=== PATIENT | male | born 1945 | race Caucasian/White ===

== ENCOUNTER 2017-04-05 18:20 | Emergency (ER) | payer MEDICARE ==
[~2017-04-05] VITALS: Ht 170.2 cm; Wt 78.1 kg
[2017-04-05 20:16] VITALS: BP 137/29
[2017-04-05] MEDS ORDERED: KETOROLAC TROMETHAMINE 30 MG/ML VIAL IM ONE (20:30)
== END 2017-04-05 21:00 | disposition home or self-care (01) ==
LOC: EMS 18:22
DX: G89.29 Other chronic pain (principal); M54.9 Dorsalgia, unspecified; Z98.890 Other specified postprocedural states; L90.5 Scar conditions and fibrosis of skin
CPT/HCPCS: 96372; 99283; J1885

== ENCOUNTER 2017-06-11 14:53 | Emergency (ER) | payer MEDICARE ==
[~2017-06-11] VITALS: Ht 170.2 cm; Wt 77.3 kg
[2017-06-11] MEDS ORDERED: TRAM50TA4 PO (15:49)
[2017-06-11] MEDS ORDERED: DIVA125T PO (15:49)
[2017-06-11] MEDS ORDERED: GABA-531 PO (15:49)
[2017-06-11] MEDS ORDERED: TAMS0.4C32 PO (15:49)
[2017-06-11] MEDS ORDERED: OLAN10TA3 PO (15:49)
[2017-06-11] MEDS ORDERED: DULO30CA2 PO (15:49)
[2017-06-11] MEDS ORDERED: LORA1TAB3 PO (15:49)
[2017-06-11 19:08] VITALS: BP 143/69
== END 2017-06-11 19:14 | disposition home or self-care (01) ==
LOC: EMS 14:55
DX: S43.401A Unspecified sprain of right shoulder joint, initial encounter (principal); S09.90XA Unspecified injury of head, initial encounter; W01.0XXA Fall on same level from slipping, tripping and stumbling without subsequent striking against object, initial encounter; Y93.89 Activity, other specified; Y92.89 Other specified places as the place of occurrence of the external cause; Y99.8 Other external cause status
CPT/HCPCS: 70450; 72125; 99284

== ENCOUNTER 2017-06-12 11:21 | Inpatient (IN) | payer MEDICARE, MEDICAID ==
[~2017-06-12] VITALS: Ht 170.2 cm; Wt 81.2 kg
[~2017-06-12 11:21] MED LIST: DIVA125T PO; DULO30CA2 PO; GABA-531 PO; LORA1TAB3 PO; OLAN10TA3 PO; TAMS0.4C32 PO; TRAM50TA4 PO
[2017-06-12 12:48] LABS: BASOPHILS % (AUTO) 0.5 % (0.0-2.0); EOSINOPHILS % (AUTO) 2.3 % (1.0-6.0); HEMATOCRIT 38.7 % (41-53); HEMOGLOBIN 12.8 g/dL (13.5-17.5); LYMPHOCYTES # (AUTO) 1.2 K/uL (1.0-4.8); LYMPHOCYTES % (AUTO) 15.5 % (22.0-44.0); MEAN CORPUSCULAR HEMOGLOBIN 26.6 pg (26.0-34.0); MEAN CORPUSCULAR HGB CONC 33.1 G/dL (31.0-37.0); MEAN CORPUSCULAR VOLUME 81 fL (80-100); MONOCYTES # (AUTO) 0.8 K/uL (0.1-1.0); MONOCYTES % (AUTO) 10.3 % (2.0-9.0); NEUTROPHILS # (AUTO) 5.8 K/uL (1.8-7.7); NEUTROPHILS % (AUTO) 71.4 % (40.0-70.0); PLATELET COUNT (AUTO) 220 K/uL (150-450); RED BLOOD CELL COUNT(AUTO) 4.81 MIL/uL (4.50-5.90); RED CELL DISTRIBUTION WIDTH 15.8 % (11.5-14.5)
[2017-06-12 12:49] LABS: ANION GAP 7 mmol/L (8-16); CALCIUM, TOTAL 8.5 mg/dL (8.8-10.5); CARBON DIOXIDE 29 mmol/L (22-29); CHLORIDE 104 mmol/L (98-107); CREATININE 0.68 mg/dL (0.60-1.30); GLOMERULAR FILTR. RATE CALC > 60 mL/min (>60); GLUCOSE,RANDOM 84 mg/dL (70-110); POTASSIUM 3.7 mmol/L (3.5-5.1); SODIUM SERUM 140 mmol/L (136-145); UREA NITROGEN, BLOOD 19 mg/dL (7-18)
[2017-06-12 12:56] LABS: ALANINE AMINOTRANSFERASE 20 U/L (12-78); ALBUMIN 3.5 g/dL (3.4-5.0); ALKALINE PHOSPHATASE 91 U/L (46-116); ASPARTATE AMINOTRANSFERASE 15 U/L (15-37); BILIRUBIN,TOTAL 0.6 mg/dL (0.1-1.0); TOTAL PROTEIN, SERUM 7.4 g/dL (6.4-8.2); VALPROIC ACID 17 mcg/mL (50-100)
[2017-06-12] MEDS ORDERED: LORazepam 1 MG TABLET PO PRN (14:00)
[2017-06-12] MEDS ORDERED: HALOPERIDOL 5 MG TABLET PO PRN (14:00)
[2017-06-12 16:21] LABS: FREE T4 (FREE THYROXINE) 1.08 ng/dL (0.76-1.46); THYROID STIMULATING HORMONE 2.49 uIU/mL (0.36-3.74)
[2017-06-12] MEDS ORDERED: ONDANSETRON HCL 4 MG TABLET PO PRN (19:45)
[2017-06-12] MEDS ORDERED: PETROLATUM,WHITE 71 GM JELLY TP PRN (19:45)
[2017-06-12] MEDS ORDERED: MAGNESIUM HYDROXIDE SUSPENSION 30 ML UDCUP PO PRN (19:45)
[2017-06-12] MEDS ORDERED: BACITRACIN 28.4 GM OINTMENT TP PRN (19:45)
[2017-06-12] MEDS ORDERED: CloNIDine HCL 0.1 MG TABLET PO PRN (19:45)
[2017-06-12] MEDS ORDERED: LOPERAMIDE HCL 2 MG CAPSULE PO PRN (19:45)
[2017-06-12] MEDS ORDERED: BENZOCAINE/MENTHOL LOZENGE [8 LOZENGES/PACKET] MM PRN (19:45)
[2017-06-12] MEDS ORDERED: ALBUTEROL SULFATE HFA 90 MCG/PUFF 8 GM INHALER IH PRN (19:45)
[2017-06-12] MEDS ORDERED: ACETAMINOPHEN 325 MG TABLET PO PRN (19:45)
[2017-06-12] MEDS ORDERED: MAG HYDROX/AL HYDROX/SIMETH ES 30 ML SUSPENSION UDCUP PO PRN (19:45)
[2017-06-12 19:50] VITALS: BP 140/85
[2017-06-13 02:15] VITALS: BP 147/78
[2017-06-13] MEDS: DOCUSATE SODIUM 100 MG CAPSULE PO SCH (08:54)
[2017-06-13] MEDS: OMEPRAZOLE 20 MG CAPSULE PO SCH (08:54)
[2017-06-13 08:58] VITALS: BP 139/75
[2017-06-13] MEDS: IBUPROFEN 600 MG TABLET PO PRN (08:58)
[2017-06-13] MEDS ORDERED: DICLOFENAC SODIUM 1% 100 GM GEL [2GM] TP PRN (09:30)
[2017-06-13 10:00] VITALS: BP 132/72
[2017-06-13 16:13] VITALS: BP 132/78
[2017-06-13] MEDS: DULoxetine HCL 30 MG CAPSULE PO SCH (20:40)
[2017-06-13] MEDS: OLANZapine 10 MG TABLET PO SCH (20:40)
[2017-06-13] MEDS: DIVALPROEX SODIUM 125 MG DR TABLET PO SCH (21:13)
[2017-06-14 05:23] VITALS: BP 136/76
[2017-06-14 08:33] LABS: CHOL/HDL RATIO 5.7 (4.2-7.3)
[2017-06-14 08:46] VITALS: BP 139/87
[2017-06-14] MEDS: TraMADol HCL 50 MG TABLET PO PRN (08:46)
[2017-06-14] MEDS: DOCUSATE SODIUM 100 MG CAPSULE PO SCH (08:46)
[2017-06-14] MEDS: DIVALPROEX SODIUM 125 MG DR TABLET PO SCH ×3 (08:46→17:07)
[2017-06-14] MEDS: LISINOPRIL 5 MG TABLET PO SCH (08:46)
[2017-06-14] MEDS: OMEPRAZOLE 20 MG CAPSULE PO SCH (08:46)
[2017-06-14 09:41] VITALS: BP 141/68
[2017-06-14 16:04] VITALS: BP 129/82
[2017-06-14] MEDS: DULoxetine HCL 30 MG CAPSULE PO SCH (20:16)
[2017-06-14] MEDS: OLANZapine 10 MG TABLET PO SCH (20:17)
[2017-06-15] VITALS (7 sets, daily range): BP systolic 127–132; BP diastolic 69–81
[2017-06-15] MEDS: ZOLPIDEM TARTRATE 10 MG TABLET PO PRN (02:04)
[2017-06-15] MEDS: LISINOPRIL 5 MG TABLET PO SCH (08:48)
[2017-06-15] MEDS: DOCUSATE SODIUM 100 MG CAPSULE PO SCH (08:48)
[2017-06-15] MEDS: OMEPRAZOLE 20 MG CAPSULE PO SCH (08:48)
[2017-06-15] MEDS: DIVALPROEX SODIUM 125 MG DR TABLET PO SCH ×3 (08:48→16:50)
[2017-06-15] MEDS: TraMADol HCL 50 MG TABLET PO PRN (09:58)
[2017-06-15] MEDS: IBUPROFEN 600 MG TABLET PO PRN (16:51)
[2017-06-15] MEDS: OLANZapine 10 MG TABLET PO SCH (20:17)
[2017-06-15] MEDS: DULoxetine HCL 30 MG CAPSULE PO SCH (20:17)
[2017-06-16] VITALS (7 sets, daily range): BP systolic 105–134; BP diastolic 64–82
[2017-06-16] MEDS: IBUPROFEN 600 MG TABLET PO PRN (06:38)
[2017-06-16] MEDS: OMEPRAZOLE 20 MG CAPSULE PO SCH (08:20)
[2017-06-16] MEDS: DIVALPROEX SODIUM 125 MG DR TABLET PO SCH ×3 (08:20→16:31)
[2017-06-16] MEDS: CHOLECALCIFEROL (VIT D3) 1,000 UNITS TABLET PO SCH (08:20)
[2017-06-16] MEDS: LISINOPRIL 5 MG TABLET PO SCH (08:21)
[2017-06-16] MEDS: DOCUSATE SODIUM 100 MG CAPSULE PO SCH (08:21)
[2017-06-16] MEDS: TraMADol HCL 50 MG TABLET PO PRN (10:11)
[2017-06-16] MEDS: OLANZapine 10 MG TABLET PO SCH (20:36)
[2017-06-16] MEDS: DULoxetine HCL 30 MG CAPSULE PO SCH (20:37)
[2017-06-17 00:33] VITALS: BP 121/60
[2017-06-17] MEDS: TraMADol HCL 50 MG TABLET PO PRN ×2 (01:29→19:24)
[2017-06-17] MEDS: ZOLPIDEM TARTRATE 10 MG TABLET PO PRN (01:29)
[2017-06-17 01:30] VITALS: BP 110/60
[2017-06-17] MEDS: DOCUSATE SODIUM 100 MG CAPSULE PO SCH (08:32)
[2017-06-17] MEDS: DIVALPROEX SODIUM 125 MG DR TABLET PO SCH ×3 (08:32→16:03)
[2017-06-17] MEDS: OMEPRAZOLE 20 MG CAPSULE PO SCH (08:33)
[2017-06-17] MEDS: CHOLECALCIFEROL (VIT D3) 1,000 UNITS TABLET PO SCH (08:33)
[2017-06-17] MEDS: LISINOPRIL 5 MG TABLET PO SCH (08:33)
[2017-06-17 16:21] VITALS: BP 127/78
[2017-06-17 19:24] VITALS: BP 126/71
[2017-06-17] MEDS: OLANZapine 10 MG TABLET PO SCH (20:57)
[2017-06-17] MEDS: DULoxetine HCL 30 MG CAPSULE PO SCH (20:57)
[2017-06-18 00:31] VITALS: BP 104/66
[2017-06-18] MEDS: ZOLPIDEM TARTRATE 10 MG TABLET PO PRN (00:32)
[2017-06-18] MEDS: IBUPROFEN 600 MG TABLET PO PRN (00:33)
[2017-06-18] MEDS: DIVALPROEX SODIUM 125 MG DR TABLET PO SCH ×3 (08:47→16:16)
[2017-06-18] MEDS: LISINOPRIL 5 MG TABLET PO SCH (08:47)
[2017-06-18] MEDS: DOCUSATE SODIUM 100 MG CAPSULE PO SCH (08:47)
[2017-06-18] MEDS: CHOLECALCIFEROL (VIT D3) 1,000 UNITS TABLET PO SCH (08:47)
[2017-06-18] MEDS: OMEPRAZOLE 20 MG CAPSULE PO SCH (08:47)
[2017-06-18 09:32] VITALS: BP 120/75
[2017-06-18 16:03] VITALS: BP 124/78
[2017-06-18] MEDS: DULoxetine HCL 30 MG CAPSULE PO SCH (20:15)
[2017-06-18] MEDS: OLANZapine 10 MG TABLET PO SCH (20:15)
[2017-06-19 00:40] VITALS: BP 128/75
[2017-06-19 08:05] VITALS: BP 127/72
[2017-06-19] MEDS: DOCUSATE SODIUM 100 MG CAPSULE PO SCH (08:37)
[2017-06-19] MEDS: OMEPRAZOLE 20 MG CAPSULE PO SCH (08:37)
[2017-06-19] MEDS: CHOLECALCIFEROL (VIT D3) 1,000 UNITS TABLET PO SCH (08:37)
[2017-06-19] MEDS: LISINOPRIL 5 MG TABLET PO SCH (08:37)
[2017-06-19] MEDS: DIVALPROEX SODIUM 125 MG DR TABLET PO SCH ×3 (08:38→16:26)
[2017-06-19 17:00] VITALS: BP 131/78
[2017-06-19] MEDS: DULoxetine HCL 30 MG CAPSULE PO SCH (20:21)
[2017-06-19] MEDS: OLANZapine 10 MG TABLET PO SCH (20:21)
[2017-06-19] MEDS: TraMADol HCL 50 MG TABLET PO PRN (21:47)
[2017-06-19 21:49] VITALS: BP 129/78
[2017-06-20 00:09] VITALS: BP 124/77
[2017-06-20] MEDS: ZOLPIDEM TARTRATE 10 MG TABLET PO PRN (00:24)
[2017-06-20 08:01] VITALS: BP 112/63
[2017-06-20] MEDS: CHOLECALCIFEROL (VIT D3) 1,000 UNITS TABLET PO SCH (09:05)
[2017-06-20] MEDS: LISINOPRIL 5 MG TABLET PO SCH (09:05)
[2017-06-20] MEDS: DOCUSATE SODIUM 100 MG CAPSULE PO SCH (09:05)
[2017-06-20] MEDS: OMEPRAZOLE 20 MG CAPSULE PO SCH (09:05)
[2017-06-20] MEDS: DIVALPROEX SODIUM 125 MG DR TABLET PO SCH ×3 (09:21→16:38)
[2017-06-20 16:14] VITALS: BP 116/70
[2017-06-20] MEDS: IBUPROFEN 600 MG TABLET PO PRN (20:12)
[2017-06-20] MEDS: OLANZapine 10 MG TABLET PO SCH (20:15)
[2017-06-20] MEDS: DULoxetine HCL 30 MG CAPSULE PO SCH (20:15)
[2017-06-21] MEDS: DIVALPROEX SODIUM 125 MG DR TABLET PO SCH ×3 (08:58→23:02)
[2017-06-21] MEDS: DOCUSATE SODIUM 100 MG CAPSULE PO SCH (08:58)
[2017-06-21] MEDS: CHOLECALCIFEROL (VIT D3) 1,000 UNITS TABLET PO SCH (08:58)
[2017-06-21] MEDS: OMEPRAZOLE 20 MG CAPSULE PO SCH (08:58)
[2017-06-21] MEDS: LISINOPRIL 5 MG TABLET PO SCH (08:58)
[2017-06-21] MEDS: TraMADol HCL 50 MG TABLET PO PRN (11:10)
[2017-06-21 11:18] VITALS: BP 137/82
[2017-06-21] MEDS: IBUPROFEN 600 MG TABLET PO PRN (19:11)
[2017-06-21 19:22] VITALS: BP 98/60
[2017-06-21] MEDS: OLANZapine 10 MG TABLET PO SCH (20:32)
[2017-06-21] MEDS: DULoxetine HCL 30 MG CAPSULE PO SCH (20:32)
[2017-06-22] MEDS: LISINOPRIL 5 MG TABLET PO SCH (08:17)
[2017-06-22] MEDS: OMEPRAZOLE 20 MG CAPSULE PO SCH (08:17)
[2017-06-22] MEDS: CHOLECALCIFEROL (VIT D3) 1,000 UNITS TABLET PO SCH (08:17)
[2017-06-22] MEDS: TraMADol HCL 50 MG TABLET PO PRN (08:17)
[2017-06-22] MEDS: DOCUSATE SODIUM 100 MG CAPSULE PO SCH (08:17)
[2017-06-22] MEDS: DIVALPROEX SODIUM 125 MG DR TABLET PO SCH ×3 (08:18→16:52)
[2017-06-22 08:28] VITALS: BP 124/85
[2017-06-22 09:28] VITALS: BP 117/72
[2017-06-22] MEDS: IBUPROFEN 600 MG TABLET PO PRN (14:34)
[2017-06-22 16:36] VITALS: BP 122/67
[2017-06-22] MEDS: DULoxetine HCL 30 MG CAPSULE PO SCH (21:13)
[2017-06-22] MEDS: OLANZapine 10 MG TABLET PO SCH (21:13)
[2017-06-23 06:37] VITALS: BP 104/69
[2017-06-23 09:00] VITALS: BP 105/79
[2017-06-23] MEDS: CHOLECALCIFEROL (VIT D3) 1,000 UNITS TABLET PO SCH (09:00)
[2017-06-23] MEDS: LISINOPRIL 5 MG TABLET PO SCH (09:00)
[2017-06-23] MEDS: DOCUSATE SODIUM 100 MG CAPSULE PO SCH (09:00)
[2017-06-23] MEDS: OMEPRAZOLE 20 MG CAPSULE PO SCH (09:00)
[2017-06-23] MEDS: DIVALPROEX SODIUM 125 MG DR TABLET PO SCH ×2 (09:01→12:35)
[2017-06-23] MEDS: TraMADol HCL 50 MG TABLET PO PRN (09:01)
[2017-06-23] MEDS ORDERED: DSS100 PO (14:05)
[2017-06-23] MEDS ORDERED: LISI-660 PO (14:05)
[2017-06-23] MEDS ORDERED: VITAD1000 PO (14:05)
[2017-06-23] MEDS ORDERED: OMEP20 PO (14:06)
== END 2017-06-23 15:30 | DRG 885 ==
LOC: EEVIPCON 11:23 → EMS 11:23 → 3EX 17:48
DX: F25.0 Schizoaffective disorder, bipolar type (principal); R45.851 Suicidal ideations; E55.9 Vitamin D deficiency, unspecified; F41.9 Anxiety disorder, unspecified; G47.00 Insomnia, unspecified; K21.9 Gastro-esophageal reflux disease without esophagitis; I10 Essential (primary) hypertension; M19.90 Unspecified osteoarthritis, unspecified site; K59.00 Constipation, unspecified; R26.9 Unspecified abnormalities of gait and mobility; M54.2 Cervicalgia; Z59.9 Problem related to housing and economic circumstances, unspecified; Z56.0 Unemployment, unspecified; Z79.899 Other long term (current) drug therapy
CPT/HCPCS: 82306; 84439; 84443; 97116; 97161; 97166; 97530; 97535; 99285; G0480